=== PATIENT | male | born 1935 | race Caucasian/White ===

== ENCOUNTER → 2019-02-28 | Outpatient (CLI) | payer MEDICARE ==
[2019-02-28 13:30] LABS: Protein, Urine Random 20.4 mg/dL (0.0-11.9)
[2019-02-28 13:43] LABS: Creatinine, Urine Random 72.1 mg/dL (27.00-270.00)
== END ==
LOC: LAB SHORT 12:24 → LAB 12:24
PROVIDERS: Internal Medicine
DX: N18.3 Chronic kidney disease, stage 3 (moderate) (principal)
CPT/HCPCS: 82570; 84156